=== PATIENT | male | born 1955 | race Caucasian/White ===

== ENCOUNTER 2018-10-21 10:00 | Day surgery (SDC) | payer BC, OTHER ==
[~2018-10-21 10:00] MED LIST: Lactated Ringers 1,000 ML IV SCH; Midazolam 1 MG/ML 2 ML SDV ONE; Propofol 200 MG/20 ML SDV ONE; Sodium Chloride 0.9% 10 ML SDV IV PRN; Sodium Chloride 0.9% 10 ML Syringe FLUSH PRN; Sodium Chloride 0.9% 2.5 ML Syringe FLUSH PRN; fentaNYL 100 MCG/2 ML SDV ONE
--- NOTE | 2018-10-21 11:55 | PCM.PREANE ---
Preanesthetic Assessment - Anesthesia/Transfusion/Family Hx Anesthesia History: Prior Anesthesia Without Reaction Family History of Anesthesia Reaction: No Transfusion History: No Prior Transfusion(s) Intubation History: Unknown - Review of Systems General: No Symptoms Pulmonary: No Symptoms Cardiovascular: No Symptoms Gastrointestinal: No Symptoms, Other (two of his brotheres diagnosed with colon cancer, h/o colon polyps) Neurological: No Symptoms Other: Reports: None - Physical Assessment NPO Status Date: 10/21/18 NPO Status Time: 08:30 O2 Sat by Pulse Oximetry: 98 Respiratory Rate: 16 Vital Signs: Last Vital Signs Temp 36.0 C 10/21/18 10:20 Pulse 65 10/21/18 10:20 Resp 16 10/21/18 10:20 BP 151/84 H 10/21/18 10:20 Pulse Ox 98 10/21/18 10:20 Height: 1.88 m Weight: 111.13 kg ASA Class: 2 Mental Status: Alert & Oriented x3 Airway Class: Mallampati = 2 Dentition: Reports: Normal Dentition, Partial (upper, removable) Thyro-Mental Finger Breadths: 3 Mouth Opening Finger Breadths: 2 ROM/Head Extension: Full Lungs: Clear to Auscultation, Normal Respiratory Effort Cardiovascular: Regular Rate, Regular Rhythm - Allergies Allergies/Adverse Reactions: Allergies Allergy/AdvReac Type Severity Reaction Status Date / Time erythromycin base Allergy Other Verified 10/19/18 07:53 [Erythromycin Base] - Blood Product(s) Available: None - Anesthesia Plan Beta Cuco: Propranolol Med Last Dose Date: 10/21/18 Med Last Dose Time: 08:00 - Acknowledgements Anesthesia Type Planned: MAC Pt an Appropriate Candidate for the Planned Anesthesia: Yes Alternatives and Risks of Anesthesia Discussed w Pt/Guardian: Yes Pt/Guardian Understands and Agrees with Anesthesia Plan: Yes PreAnesthesia Questionnaire HEENT History: Reports: Other (See Below) Other HEENT History: wears glasses, has top partial Cardiovascular History: Reports: Hypertension, Other (See Below) (high triglycerides) Respiratory History: Reports: None Gastrointestinal History: Reports: Colon Polyp Genitourinary History: Reports: None Musculoskeletal History: Reports: Fracture, Other (See Below) Other Musculoskeletal History: hx fx leg Neurological History: Reports: None Psychiatric History: Reports: Anxiety, Depression Endocrine/Metabolic History: Reports: Obesity/BMI 30+ Hematologic History: Reports: None Immunologic History: Reports: None Oncologic (Cancer) History: Reports: Squamous Cell Carcinoma Other Oncologic History: squamous cell carcinoma-nose Dermatologic History: Reports: None - Past Surgical History Head Surgeries/Procedures: Reports: None HEENT Surgical History: Reports: Tonsillectomy Cardiovascular Surgical History: Reports: None Respiratory Surgical History: Reports: None GI Surgical History: Reports: Colonoscopy (x3, last one 3 years ago) Male Surgical History: Reports: None Endocrine Surgical History: Reports: None Neurological Surgical History: Reports: None Musculoskeletal Surgical History: Reports: Other (See Below) Other Musculoskeletal Surgeries/Procedures:: removal of FB to hand Dermatological Surgical History: Reports: Skin Biopsy - SUBSTANCE USE Smoking Status *Q: Never Smoker Recreational Drug Use History: No - HOME MEDS Home Medications: Home Meds PARoxetine HCl [Paxil] 10 mg PO DAILY 10/18/18 [History] Propranolol HCl 80 mg PO DAILY 10/18/18 [History] - CURRENT (IN HOUSE) MEDS Current Meds: Current Medications Lactated Ringer's (Ringers, Lactated) 1,000 mls @ 125 mls/hr IV ASDIRECTED GIACOMO Last Admin: 10/21/18 10:25 Dose: 125 mls/hr Sodium Chloride (Saline Flush) 10 ml FLUSH ASDIRECTED PRN PRN Reason: Keep Vein Open Sodium Chloride (Saline Flush) 2.5 ml FLUSH ASDIRECTED PRN PRN Reason: Keep Vein Open Sodium Chloride (Saline Flush) 10 ml FLUSH ASDIRECTED PRN PRN Reason: Keep Vein Open Sodium Chloride (Saline Flush) 2.5 ml FLUSH ASDIRECTED PRN PRN Reason: Keep Vein Open Sodium Chloride (Normal Saline) 10 ml IV ASDIRECTED PRN PRN Reason: IV Use Discontinued Medications Fentanyl (Sublimaze) Confirm Administered Dose 100 mcg .ROUTE .STK-MED ONE Stop: 10/21/18 07:41 Midazolam HCl (Versed 1 Mg/Ml) Confirm Administered Dose 2 mg .ROUTE .STK-MED ONE Stop: 10/21/18 07:41 Propofol (Diprivan 20 Ml) Confirm Administered Dose 200 mg .ROUTE .STK-MED ONE Stop: 10/21/18 07:41
--- NOTE | 2018-10-21 13:10 | PCM.OPNOTE ---
- General Post-Op/Procedure Note Date of Surgery/Procedure: 10/21/18 Operative Procedure(s): Screening colonoscopy Findings: Transverse colon polyp Pre Op Diagnosis: History of colon polyps Post-Op Diagnosis: transverse colon polyp Anesthesia Technique: MAC Primary Surgeon: Mary Louis Condition: Good
--- NOTE | 2018-10-21 13:41 | PCM48HPAN ---
Post Anesthesia Note - EVALUATION WITHIN 48HRS OF ANESTHETIC Vital Signs in Normal Range: Yes Patient Participated in Evaluation: Yes Respiratory Function Stable: Yes Airway Patent: Yes Cardiovascular Function Stable: Yes Hydration Status Stable: Yes Pain Control Satisfactory: Yes Nausea and Vomiting Control Satisfactory: Yes Mental Status Recovered: Yes (No anesthesia problems) Resp Rate: 12
--- NOTE | 2018-10-21 15:18 | OR ---
SURGEON: MARY LOUIS MD DATE OF PROCEDURE: 10/21/2018 PREOPERATIVE DIAGNOSIS: History of colon polyps. POSTOPERATIVE DIAGNOSIS: Transverse colon polyp. PROCEDURE PERFORMED: Screening colonoscopy. PRIMARY SURGEON: Endoscopist, Dr. Mary Louis. ANESTHESIA: MAC. INSTRUMENT USED: Olympus colonoscope. EXTENT OF EXAM: To the cecum. PREPARATION: Good. LIMITATIONS: None. INDICATION FOR EXAMINATION: The patient is a 63-year-old male with a strong family history of colon cancer. He has had several colonoscopies in the past and had polyps removed. He is here for a routine followup. I explained the procedure, expected perioperative course, and risks including bleeding, infection, or damage to surrounding structures including perforation. The patient verbalized understanding and wishes to proceed. PROCEDURE IN DETAIL: The patient brought to the endoscopy suite and placed in the left lateral decubitus position. A time-out was completed verifying the patient's name, age, date of , allergies, and procedure to be performed. Monitored anesthesia care was induced and continuous oxygen was provided via nasal cannula throughout the procedure. After adequate sedation was achieved, a digital rectal exam was performed. This exam was within normal limits. A well-lubricated colonoscope was inserted in the rectum and advanced under direct visualization to the level of the cecum. The cecum was identified by both visual and anatomic landmarks. A photograph was taken of the cecal cap as well as with the scope retroflexed within the cecum. The scope was then straightened out and fully withdrawn while examining the color, texture, anatomy, and integrity of the mucosa from the cecum to the anal canal. The patient was found to have a very small sessile polyp in the proximal transverse colon. This was removed in piecemeal fashion using a cold biopsy forceps. The remainder of the colon was normal. The scope was retroflexed within the rectum to allow visualization of the anal canal opening. This appeared normal and a photograph was taken. Scope was straightened out and fully withdrawn. The cecum to anus time was 6 minutes. The patient tolerated the procedure well and was transferred to the PACU in stable condition. ENDOSCOPIC DIAGNOSIS: Transverse colon polyp. RECOMMENDATIONS: Follow up in clinic in 2 weeks. EVERT FERNANDES /[id number]
== END 2018-10-21 13:46 | disposition home or self-care (01) ==
LOC: MW.SDS 10:00
PROVIDERS: ATTEND Surgery
DX: Z12.11 Encounter for screening for malignant neoplasm of colon (principal); K63.5 Polyp of colon; I10 Essential (primary) hypertension; E78.5 Hyperlipidemia, unspecified; E78.1 Pure hyperglyceridemia; F32.9 Major depressive disorder, single episode, unspecified; F41.9 Anxiety disorder, unspecified; Z88.1 Allergy status to other antibiotic agents; Z86.010 Personal history of colon polyps; Z80.0 Family history of malignant neoplasm of digestive organs; Z79.899 Other long term (current) drug therapy
CPT/HCPCS: 45380; 88305; J2250; J2704; J3010; J7120; 00812

== ENCOUNTER 2024-11-03 16:18 | Emergency (ER) | payer MEDICARE ==
[2024-11-03] MEDS ORDERED: Sodium Chloride 0.9% 2.5 ML Syringe FLUSH PRN (16:55)
[2024-11-03] MEDS ORDERED: Sodium Chloride 0.9% 20 ML SDV IV PRN (16:55)
[2024-11-03] MEDS ORDERED: Sodium Chloride 0.9% 10 ML Syringe FLUSH PRN (16:55)
[2024-11-03] MEDS: Aspirin 81 MG Tab.Chew PO ONE (17:26)
[2024-11-03] MEDS: Sodium Chloride 0.9% 1,000 ML IV ONE (17:28)
[2024-11-03 17:34] LABS: BASOPHILS ABSOLUTE AUTO 0.04 K/uL (0.00-0.20); BASOPHILS PERCENT AUTO 0.3 % (0.0-1.0); EOSINOPHILS ABSOLUTE AUTO 0.07 K/uL (0.00-0.45); EOSINOPHILS PERCENT AUTO 0.6 % (0.0-6.0); HEMATOCRIT 48.4 % (42.0-52.0); HEMOGLOBIN 16.8 g/dL (14.0-18.0); IMMATURE GRAN ABSOLUTE AUTO 0.04 K/uL (0.00-0.05); IMMATURE GRAN PERCENT AUTO 0.3 % (0.0-0.4); LYMPHOCYTES ABSOLUTE AUTO 1.85 K/uL (1.00-4.80); LYMPHOCYTES PERCENT AUTO 15.3 % (24.0-44.0); MEAN CORPUSCULAR HEMOGLOBIN 29.2 pg (28.0-32.0); MEAN CORPUSCULAR HGB CONC 34.7 g/dL (32.0-36.0); MEAN PLATELET VOLUME 9.8 fL (9.4-12.4); MONOCYTES ABSOLUTE AUTO 0.79 K/uL (0.00-0.80); MONOCYTES PERCENT AUTO 6.5 % (0.0-8.0); NEUTROPHILS ABSOLUTE AUTO 9.34 K/uL (1.80-7.70); PLATELET COUNT,PLT 177 K/uL (150-400); RED BLOOD CELL COUNT 5.76 M/uL (4.52-5.90); WHITE BLOOD CELL COUNT,WBC 12.13 K/uL (3.9-11.3)
[2024-11-03] MEDS: Magnesium Sulfate 2 GM/50 mL 2 GM in Premix Bag 1 BAG IV ONE (17:39)
[2024-11-03] MEDS ORDERED: cefTRIAXone 2 GM in Sodium Chloride 0.9% 100 ML IV ONE (17:58)
[2024-11-03 18:09] LABS: APPEARANCE,URINE CLEAR; BILIRUBIN,URINE NEGATIVE (NEGATIVE); COLOR,URINE YELLOW; GLUCOSE,URINE NEGATIVE (NEGATIVE); KETONES,URINE NEGATIVE (NEGATIVE); LEUKOCYTE ESTERASE,URINE NEGATIVE (NEGATIVE); NITRITE,URINE NEGATIVE (NEGATIVE); OCCULT BLOOD,URINE NEGATIVE (NEGATIVE); PH,URINE 6.5 (5.0-8.0); PROTEIN,URINE NEGATIVE (NEGATIVE); UROBILINOGEN,URINE 0.2 EU/dL (<2.0)
[2024-11-03 18:12] LABS: LACTIC ACID 1.6 mmol/L (0.4-2.0)
[2024-11-03 18:14] LABS: A/G RATIO 1.1 (0.9-1.6); ALANINE AMINOTRANSFERASE,ALT 19 IU/L (14-63); ALBUMIN 3.8 g/dL (3.4-5.0); ALKALINE PHOSPHATASE 102 U/L (46-116); ASPARTATE AMNIOTRANSFERASE,AST 17 IU/L (15-37); BILIRUBIN TOTAL 0.6 mg/dL (0.2-1.0); BLOOD UREA NITROGEN,BUN 22 mg/dL (7.0-18.0); C-REACTIVE PROTEIN 0.78 mg/dL (<0.3); CALCIUM 8.7 mg/dL (8.5-10.1); CARBON DIOXIDE,CO2 29.6 mmol/L (21.0-32.0); CHLORIDE,CL 98 mmol/L (98-107); CREATINE KINASE,CK 62 U/L (26-308); CREATININE 1.2 mg/dL (0.8-1.3); EST CRCL DRUG DOSING (CG) 69.45 mL/min; ESTIMATED GFR 66 mL/min (>60); ETHANOL BLOOD MEDICAL < 3.0 mg/dL; GLUCOSE RANDOM 119 mg/dL (74-106); MAGNESIUM 2.1 mg/dL (1.8-2.4); POTASSIUM,K 3.9 mmol/L (3.5-5.1); PRO B-TYPE NATRIUR PEPT,BNPPRO 2042 pg/mL (0-125); PROTEIN TOTAL,TP 7.4 g/dL (6.4-8.2); SODIUM,NA 137 mmol/L (136-148)
[2024-11-03] MEDS: Metoprolol Tartrate 5 MG/5 ML SDV IVPUSH ONE (18:33)
[2024-11-03] MEDS: Diltiazem 25 MG/5 ML SDV IVPUSH ONE (19:01)
[2024-11-03] MEDS: cefTRIAXone 2 GM in Water For Injection, Sterile 20 ML IVPUSH ONE (19:34)
[2024-11-03] MEDS: Diltiazem 120 MG Cap.CD PO ONE (20:05)
== END 2024-11-03 20:21 | disposition home or self-care (01) ==
LOC: MW.ED 16:18
DX: I48.92 Unspecified atrial flutter (principal); Z88.1 Allergy status to other antibiotic agents; Z79.899 Other long term (current) drug therapy
CPT/HCPCS: 36415; 71046; 71046-26; 80053; 80307; 81003; 82550; 83605; 83735; 83880; 84443; 84484; 85025; 85379; 85652; 86140; 87040; 93005; 93010; 96374; 96375; 99284-25; 99291; A9270-GY; J3475; J3490; J7030